=== PATIENT | male | born 1950 | race Two or more races ===

== ENCOUNTER 2022-01-31 17:30 | Emergency (ER) | payer BC ==
[~2022-01-31] VITALS: Ht 170.2 cm; Wt 77.1 kg
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
--- NOTE | 2022-01-31 18:30 | NUR ---
MD at bedside, medical screening exam in progress.
[2022-01-31] MEDS ORDERED: IBUPROFEN 600 MG TABLET PO ONE (18:45)
[2022-01-31] MEDS ORDERED: CEphaleXIN 500 MG CAPSULE ONE (18:49)
[2022-01-31] MEDS ORDERED: IBUPROFEN 600 MG TABLET ONE (18:49)
--- NOTE | 2022-01-31 18:59 | NUR ---
Received report from Elizabeth GARCIA
[2022-01-31] MEDS ORDERED: CEphaleXIN 500 MG CAPSULE PO ONE (19:00)
--- NOTE | 2022-01-31 19:00 | NUR ---
Patient taken to CT
--- NOTE | 2022-01-31 19:20 | NUR ---
patient is back from CT
[2022-01-31] MEDS ORDERED: TDAP DIPH,PERTUSS,TET VAC/PF 0.5 ML DISP.SYRIN IM ONE ×2 (19:27→19:30)
--- NOTE | 2022-01-31 19:39 | NUR ---
Patient is a/ox4, NAD noted.
[2022-01-31] MEDS ORDERED: CYCL10TA9 PO (19:45)
[2022-01-31] MEDS ORDERED: HYDR-4209 PO (19:45)
[2022-01-31] MEDS ORDERED: CEPH500T PO (19:45)
--- NOTE | 2022-01-31 19:54 | NUR ---
Patient discharged to home in stable condition. Written and verbal after care instructions given. Patient verbalizes understanding of instructions. Stressed follow up or return to ER for worsening s/s. Patient is a/ox4, NAD noted, patient is able to walk with steady gait
[2022-01-31 19:55] VITALS: BP 127/74
== END 2022-01-31 19:55 | disposition home or self-care (01) ==
LOC: ER 17:33
DX: S29.012A Strain of muscle and tendon of back wall of thorax, initial encounter (principal); S13.4XXA Sprain of ligaments of cervical spine, initial encounter; S61.412A Laceration without foreign body of left hand, initial encounter; V49.9XXA Car occupant (driver) (passenger) injured in unspecified traffic accident, initial encounter; Y92.410 Unspecified street and highway as the place of occurrence of the external cause; G44.209 Tension-type headache, unspecified, not intractable
CPT/HCPCS: 70450; 72072; 73130; 90715; A4663